=== PATIENT | female | born 1975 | race Caucasian/White ===

== ENCOUNTER 2022-08-05 08:00 | Outpatient (RCR) | payer OTHER, SELFPAY | END 2022-10-02 12:19 | disposition home or self-care (01) | PROVIDERS: PCP Family Medicine; Visit Provider Family Medicine | DX: M25.551 Pain in right hip (principal); Z51.89 Encounter for other specified aftercare | CPT/HCPCS: 97110; 97112; 97161 ==

== ENCOUNTER 2023-11-19 13:00 | Outpatient (RCR) | payer OTHER, SELFPAY | END 2024-03-18 23:59 | disposition home or self-care (01) | PROVIDERS: PCP Family Medicine; Visit Provider Family Medicine | DX: N81.2 Incomplete uterovaginal prolapse (principal); Z51.89 Encounter for other specified aftercare | CPT/HCPCS: 97110; 97140; 97162 ==

== ENCOUNTER 2025-03-25 08:08 | Outpatient (CLI) | payer OTHER, SELFPAY ==
--- NOTE | 2025-03-25 08:15 | CRLHL7_ITS ---
For Patients: As a result of the Century Cures Act, medical imaging exams and procedure reports are released immediately into your electronic medical record. You may view this report before your referring provider. If you have questions, please contact your health care provider. Indication: PAIN, INSTABILITY OF LEFT SHOULDER, LABRAL TEAR Comparison: 03/14/2025 Procedure : Informed consent was obtained. The site was marked. Time-out was performed. The skin of the left shoulder was cleansed with ChloraPrep. A sterile drape was placed. 8 cc of 1 percent lidocaine was administered for superficial anesthesia. Subsequently a 22 gauge spinal needle was introduced into the left shoulder joint under intermittent fluoroscopic guidance. Injection of 2 cc nonionic Omnipaque 240 contrast confirmed intra-articular location. Subsequently 11 cc of dilute gadolinium were injected. The needle was removed and hemostasis achieved with direct pressure. A dressing was placed. The patient tolerated the procedure well without immediate complication and was immediately sent to MRI for imaging. Total fluoroscopy time 33 seconds. Impression: Successful fluoroscopically guided left shoulder arthrogram for MRI. Dictated by Stevie Cruz MD @ 03/25/2025 10:12:56 AM (Electronically Signed)
--- NOTE | 2025-03-25 09:15 | MR_ITS ---
[address] [address] Phone:?[phone] Fax:?[phone] Referring Physician Information: Erick Landin M.D. [address] [place] [address] Phone:?[phone] Fax:?[phone] Patient:Idalmis Rao D.O.B:?1975 Sex:?Female Phone:?[phone] [facility] MRN:?[id number] Exam Date:?03/25/2025 EXAM: MR ARTHROGRAM of the LEFT SHOULDER CLINICAL: Left shoulder instability. Evaluate for labral tear. COMPARISONS: X-rays 03/14/2025. TECHNICAL: Multiplanar multisequence MRI of the left shoulder was obtained following the intra-articular administration of contrast. SEDATION: None. CONTRAST: Gadolinium based contrast within the left glenohumeral joint. FINDINGS: Rotator cuff: Supraspinatus/Infraspinatus: No tendinosis, tear or atrophy. Teres minor: No tendinosis, tear or atrophy. Subscapularis: No tendinosis, tear or atrophy. Bursae: Subacromial-subdeltoid: No significant bursal fluid. Subcoracoid: No significant bursal fluid. Coracoacromial arch: Acromion morphology: Type II. No os acromiale. Acromiohumeral space: Within normal limits. Coracohumeral space: Within normal limits. Biceps tendon, long head: There is mild tendinosis/partial interstitial tearing of the intra-articular tendon. No tendon tear or displacement. Glenohumeral joint: There is increased contrast within the glenohumeral joint consistent with successful arthrogram injection. Displaced chondral fragment is present within the axillary recess measuring approximately 6 mm in size on coronal series 6 image 16. Articular cartilage: There is high-grade high-grade chondral loss and deep chondral delamination involving the anterior/anteroinferior glenoid on axial series 3 images 15-16 measuring approximately 6 mm in transverse dimension. Humeral head cartilage appears preserved. Capsule: No evidence of capsular thickening or injury. Labrum: There is tearing of the anterior and anteroinferior labrum as seen on axial series 3 images 15-17. There is attenuation and tearing of the superior and posterior superior labrum as seen on coronal series 6 images 14-16. No perilabral cyst identified. Bones: No suspicious marrow signal alteration, fracture or dislocation. Acromioclavicular joint: No acute injury or significant arthrosis. IMPRESSION: 1. Tearing of the anterior and anteroinferior labrum with adjacent small segment of high-grade chondral loss and deep chondral delamination involving the anterior and anteroinferior glenoid. Small 6 mm displaced chondral fragment within the axillary recess. 2. Attenuation and tearing of the superior and posterior superior labrum. 3. Mild tendinosis/partial interstitial tearing of the intra-articular long head biceps tendon. 4. Normal appearance of the rotator cuff. JCZ Electronically signed on 03/25/2025 11:35:00 AM by Damon Interiano D.O.
--- OUTSIDE RECORDS SUMMARY | 2025-03-26 00:51 | XMS_ITS | Clinical Summary ---
Author Organization [employer] [facility] Address [address] [place] [address] Care Team Providers Care Demand Equipment Repairer Name Role Phone Altagracia Vela MD Primary Care Provider Allergies Active Allergy Reactions Criticality Noted Date Comments Ragweed Runny Nose 06/15/2012 Medications FLUoxetine (PROZAC) 20 mg capsuleIndicati ons:Anxiety Take 1 Capsule (20 mg) by mouth once daily. 90 Capsule 3 10/08/2024 Active Active Problems Problem Noted Date Diagnosed Date Cervical cancer screening 10/15/2024 Overview (10/15/2024): 10/2024 NIL/HPV negative Plan: HPV-based testing due 10/2029 Abnormal uterine bleeding (AUB) 10/17/2023 Colon polyp 10/08/2022 Overview (10/08/2022): Colonoscopy 09/2022 3-TA, repeat in 5 years Menorrhagia with regular cycle 06/18/2019 History of gestational diabetes 06/18/2019 Anxiety 06/18/2019 Tonsil stone 06/18/2019 Low ferritin Resolved Problems Problem Noted Date Diagnosed Date Resolved Date White classification A2 gest ational diabetes mellitus (GDM), insulin controlled 12/18/201605/19 Overview (12/18/2016): 12/2016: history of LGA X 2. OGTT not done. Fasting glucose 89-115, one hour post meals normal. History of shoulder dystocia in prior , currently in second trimester 11/06/2016 05/19/2018 AMA (advanced maternal age) multigravida 35+ 6 05/19/2018 Supervision of high risk pre gnancy in third trimester 07/11/2016 05/19/2018 Overview (02/07/2017): Complications this : - Gestational diabetes, insulin controlled (white class A2) - H/o shoulder dystocia - H/o hemorrhage. OB history: 1st : ectopic 2nd: Tennille (14 year old)-- 8 + lbs. -- born at [facility] at 41 weeks 3rd: Miscarriage at 12 weeks 4th/5th: IVF -- twin , but Felix was only baby that made it --(10 lbs) --home , 41 weeks. Complicated by hemorrhage, improved with pitocin. Complicated by post- hemorrhage. Improved with pitocin Complicated by shoulder dystocia 2nd deg tear with first, 1st deg with 2nd. Fractured vertebrae as a teenager in lumbar spine. Has some chronic back pain from that injury. This is an Unplanned . FOB 48, Mom 40. Has had 2 unmedicated deliveries. Would like to do as much genetic testing as possible, and plans to have medications to assist with labor pain management. /Father of baby: Don GBS: Negative GTT: Not done, did glucose monitoring at home to confirm gestational diabetes. Has been following with Dr. Calderon at and [facility] clinic. Blood type: A Rh + Hemoglobin: 12.9-11.9 HIV negative Hepatitis B negative Treponema negative Rubella Immune Tdap given 12/11/16 Influenza given 07/11/2016 No need for rhogam given Rh+ status Well female exam with routin e gynecological exam 04/21/2013 12/18/2016 Adjustment disorder with anxiety 01/26/2013 04/21/2013 Immunizations Immunization Administration Dates Next Due INFLUENZA, IIV3 PF (AGE >= 6 MO) 08/27/2024 Influenza A (H1N1), Inactivated 08/16/2009 Influenza, IIV3 (Age >=3 years) 07/20/2010 Influenza, IIV4 07/03/2023,,06/18/2019,06/30/2017 ,07/11/2016,08/16/2009 Influenza, IIV4 (=>6mos) MDV 07/05/2020,07/30/20 18,07/19/2015 Tdap 12/11/2016,06/15/2012 Tdap, Unspecified 07/28/2007 Family History Medical History Relation Name Comments Good Health Father Cancer-breast Maternal Aunt diagnosed lat e 50s Cancer Maternal Grandfather leukemi a, old age Other Maternal Grandfather glaucom a Good Health Mother Other Paternal Grandmother macular degeneration Cancer-ovarian No Family History Relation Name Status Comments Father Maternal Aunt Maternal Grandfather Mother Paternal Grandmother Social History Tobacco Use Types Packs/Day Years Used Date Smoking Tobacco: Never Passive Smoke Exposure: Past Smokeless Tobacco: Never Tobacco Cessation:Counseling Given: Yes Alcohol Use Standard Drinks/Week Comments No 0 (1 standard drink = 0.6 oz pur e alcohol) PHQ-2 Answer Date Recorded PHQ-2 TOTAL SCORE 0 07/03/2023 Social Connections Answer Date Recorded Do you often feel lonely or isolated from those around you? 0 10/03/2024 Financial Resource Strain Answer Date R ecorded Difficulty of Paying Living Expenses 3 10/03/2024 Difficulty of Paying Living Expenses Not on file 10/03/2024 Food Insecurity Answer Date Recorded Do you worry your food will run out before you are able to buy more? 1 10/03/2024 Transportation Needs Answer Date Record ed Does lack of transportation keep you from medica l appointments? 1 10/03/2024 Does lack of transportation keep you from work, meetings or getting things that you need? 1 10/03/2024 Housing Stability Answer Date Recorded What is your housing situation today? 1 10/03/2024 Utilities Answer Date Recorded Do you have trouble paying f or utilities (for example, heat, electricity, water, phone)? 1 10/03/2024 Comments No Sex and Gender Information Value Date Recorded Sex Assigned at Not on file Legal Sex Female 5:26 AM ORTHOPAEDIC TECHNOLOGIST Gender Identity Not on file Sexual Orientation Not on file Obstetrics History Para Term AB IAB SAB Ectopic Multiple Livin g Live Births 5 3 3 2 1 1 3 3 Date Outcome GA Total Labor Labor/2nd/3rd Weight Sex Type Anes PTL Silvana A1 A5 Name Clin Term Term Ectopic SAB 017 Term 39w2 d Vag Last Filed Vital Signs Vital Sign Reading Time Taken Comments Blood Pressure 124/82 10/08/2024 9:57 AM ORTHOPAEDIC TECHNOLOGIST man ual Pulse 84 10/08/2024 9:57 AM ORTHOPAEDIC TECHNOLOGIST Temperature 36.3 C (97.4 F) 10/17/2023 2:17 PM ORTHOPAEDIC TECHNOLOGIST Respiratory Rate 16 10/17/2023 2:47 PM ORTHOPAEDIC TECHNOLOGIST Oxygen Saturation 98% 10/08/2024 9:57 AM ORTHOPAEDIC TECHNOLOGIST Inhaled Oxygen Concentration - - Weight 81.4 kg (179 lb 6.4 oz) 10/08/2024 9:57 A M ORTHOPAEDIC TECHNOLOGIST Height 165.1 cm (5' 5) 10/08/2024 9:57 AM ORTHOPAEDIC TECHNOLOGIST Body Mass Index 29.85 10/08/2024 9:57 AM ORTHOPAEDIC TECHNOLOGIST Plan of Treatment Health Maintenance Due Date Last Done Comments Hepatitis B series for 19+ (1 of 3 - 19+ 3-dose series) 1995 Depression screening for age 12+ 07/07/2024 07/07/2023, 07/04/2023, 07/03/2023, Additional history exists Mammogram for age 45-75 10/10/2024 10/10/19 24, 05/22/2022, 07/05/2020, Additional history exists BMI (ht and wt on same day) for age 18+ 10/08/2025 10/08/2024, 07/03/2023, 05/28/2022, Additional history exists Tetanus booster 12/11/2026 12/11/2016, 06/06, 04/15/2011, Additional history exists Colonoscopy through age 75 09/25/202709/25, 09/25/2022, 09/25/2022 Lipids for age 45-75 10/08/2029 10/08/2024, 04/11/2021, 06/18/2019, Additional history exists Pap test for age 21-65 10/08/2029 , 10/08/2024, 06/18/2019, Additional history exists HIV for age 15-65 Completed 07/11/2016 Tdap Completed 12/11/2016, 06/06, 07/28/2007 Hepatitis C screening for age 18-79 Completed 05/08/2022 COVID-19 vaccine series Completed 06/11/20 24, 07/09/2023, 08/17/2021, Additional history exists Influenza Vaccine Completed 08/27/2024, , 07/02/2021, Additional history exists Pneumococcal series for age 6-49 Aged Out No longer eligible based on patient's age to complete this topic Procedures Procedure Name Priority Date/Time Associated Diagnosis Comments LIPID PANEL W REFLEX MEASURED LDL Routine 10/08/2024 10:31 AM ORTHOPAEDIC TECHNOLOGIST Lipid screening HPV HIGH RISK Routine 10/08/2024 10:24 AM ORTHOPAEDIC TECHNOLOGIST Screening for cervical cancer XR MAMMO BILAT SCREENING Routine 10/10/2023 8:45 AM ORTHOPAEDIC TECHNOLOGIST Visit for screening mammogram COLONOSCOPY 09/25/2022 7:37 AM ORTHOPAEDIC TECHNOLOGIST ANTI HCV Routine 05/08/2022 4:34 PM CDT Need for hepatitis C screening test ANTI HIV 1/2 Routine 07/11/2016 5:59 PM CDT Encounter for supervision of other normal , first trimester (HC) from Last 3 Months or Most Recently Relevant to Health Maintenance Results * LIPID PANEL W REFLEX MEASURED LDL (10/08/2024 10:31 AM ORTHOPAEDIC TECHNOLOGIST) Pathologist [facility] CHOLESTEROL, TOTAL 174 <200 mg/dL [facility] HDL CHOLESTEROL 65 > OR = 50 mg/dL [facility] TRIGLYCERIDES 101 <150 mg/dL [facility] LDL-CHOLESTEROL 90 mg/dL (calc) [facility] Comment: Reference range: <100 Desirable range <100 mg/dL for primary prevention; <70 mg/dL for patients with CHD or diabetic patients with > or = 2 CHD risk factors. LDL-C is now calculated using the Arsh calculation, which is a validated novel method providing better accuracy than the Friedewald equation in the estimation of LDL-C. Silas GALE et al. LEN. 2013;310(19): 1934-8552 (http://education.StarChase.Yumber/faq/QNJ618) CHOL/HDLC RATIO 2.7 <5.0 (calc) [facility] NON HDL CHOLESTEROL 109 <130 mg/dL (calc) [facility] Comment: For patients with diabetes plus 1 major ASCVD risk factor, treating to a non-HDL-C goal of <100 mg/dL (LDL-C of <70 mg/dL) is considered a therapeutic option. Blood BLOOD SPECIMEN / Unknown 10/08/2024 10:31 AM ORTHOPAEDIC TECHNOLOGIST 10/08/2024 10:31 AM ORTHOPAEDIC TECHNOLOGIST us Altagracia Vela MD CHEMISTRY Final Resul t Performing Organization Address [facility] Co de Phone Number [employer] [facility] [address] [place] [address], [address] [address] * HPV HIGH RISK (10/08/2024 10:24 AM ORTHOPAEDIC TECHNOLOGIST) TYPE 16 Negative Negative 10/12/2024 2:47 PM ORTHOPAEDIC TECHNOLOGIST [facility] TYPE 18 Negative Negative 10/12/2024 2:47 PM ORTHOPAEDIC TECHNOLOGIST [facility] OTHER HIGH RISK TYPES Negative Negative 10/12/2024 2:47 PM ORTHOPAEDIC TECHNOLOGIST [facility] Other (Cervical) Non-Blood / Unknown 10/08/2024 10:24 AM ORTHOPAEDIC TECHNOLOGIST 10/08/2024 4:33 PM ORTHOPAEDIC TECHNOLOGIST Narrative [facility] - 10/12/2024 2:47 PM ORTHOPAEDIC TECHNOLOGIST HPV types 16, 18, 31, 33, 35, 39, 45, 51, 52, 56, 58, 59, 66 and 68 DNA were undetectable or below the pre-set threshold. Methodology: Scopely Jez 4800 HPV Test us Altagracia Vela MD MICROBIOLOGY Final Resul t [facility] [address] [place] [address], [place] * XR MAMMO BILAT SCREENING (10/10/2023 8:45 AM ORTHOPAEDIC TECHNOLOGIST) Anatomical Region Laterality Modality BREASTS, Breast Left, Breast Right Bilateral Mammography Impressions 10/10/2023 3:03 PM ORTHOPAEDIC TECHNOLOGIST There is no radiographic evidence for malignancy. Recommend annual mammograms. MAMMOGRAM ASSESSMENT: ACR 1 Negative PATIENTS: You will also receive a letter with your examination results in an easy to read format. If you have questions about your results, please contact your referring provider. Narrative 10/10/2023 3:03 PM ORTHOPAEDIC TECHNOLOGIST For Patients: As a result of the Century Cures Act, medical imaging exams and procedure reports are released immediately into your electronic medical record. You may view this report before your referring provider. If you have questions, please contact your health care provider. XR MAMMO BILAT SCREENING [[id number]] CLINICAL HISTORY: This is an asymptomatic 48 y.o. patient. INDICATION FOR EXAM: Mammogram Screening. TECHNIQUE: CC & MLO views were obtained. This study was evaluated with the assistance of Computer-Aided Detection. COMPARISON FILM: Yes 05/22/22 [facility] 07/05/20 [employer] FINDINGS: The breasts have scattered areas of fibroglandular density. There are no dominant masses, suspicious micro calcifications or areas of architectural distortion. us Altagracia Vela MD MAMMO Final Resul t * COLONOSCOPY (09/25/2022 7:37 AM ORTHOPAEDIC TECHNOLOGIST) 09/25/2022 7:37 AM ORTHOPAEDIC TECHNOLOGIST Narrative Transcriptions Silas Alfaro MD - 09/25/2022 8:50 AM CST Patient Name: Cate Rao Procedure Date: 09/25/2022 Gender: Female Date of : 1975 Admit Type: Outpatient Procedure: Colonoscopy Proceduralist: Silas Alfaro MD , Ying Story RN (Nurse), Esperanza Cash (Nurse) Indications/Pre-Op Diagnosis: Screening for colorectal malignant neoplasm, This is the patient's first colonoscopy Medications: Fentanyl 100 micrograms IV, Midazolam 3 mgIV Procedure Description: The patient had risks, benefits and alternatives explained to andgave informed consent. The patient had a stable cardiopulmonary status and judged an adequate candidate for conscious sedation. The endoscope PCF-H190L [id number] was passed through the anus andadvanced to the cecum, identified by appendiceal orifice and ileocecal valve.The colonoscopy was performed without difficulty. The patient toleratedthe procedure well. The quality of the bowel preparation was good. The ileocecal valve, appendiceal orifice, and rectum were photographed. Complications: No immediate complications. Estimated Blood Loss & Specimen: Estimated blood loss: none. Specimen collected - Yes and sent to Laboratory Findings: The perianal and digital rectal examinations were normal. A 3 mm polyp was found in the sigmoid colon. The polyp was sessile.The polyp was removed with a cold biopsy forceps. Resection and retrieval were complete. Four sessile and semi-pedunculated polyps were found in the rectum.The polyps were 3 to 4 mm in size. These polyps were removed with a cold snare. Resection and retrieval were complete. The exam was otherwise without abnormality on direct and retroflexion views. Impressions/Post-Op Diagnosis: - One 3 mm polyp in the sigmoid colon, removed with a cold biopsy forceps. Resected and retrieved. - Four 3 to 4 mm polyps in the rectum, removed with a cold snare. Resected and retrieved. - The examination was otherwise normal on direct and retroflexionviews. Recommendation: - Patient has a contact number available for emergencies. The signsand symptoms of potential delayed complications were discussed with the patient. Return to normal activities tomorrow. Written discharge instructions were provided to the patient. - Resume previous diet. - Continue present medications. - Await pathology results. - Repeat colonoscopy is recommended for surveillance. The colonoscopy date will be determined after pathology results from today's exambecome available for review. Moderate Sedation: A time out was performed before the procedure. Moderate (conscious) sedation was administered by the endoscopy nurse and supervised bythe endoscopist. The following parameters were monitored: oxygensaturation, heart rate, blood pressure, EKG, CO2, respiratory rate, adequacy of pulmonary ventilation and reponse to care. Please refer to the patient's medical record flowsheets and nursing notes for moderate sedation details. Total physician intraservice time was 19 minutes. Silas Alfaro MD 09/25/2022 8:50:30 AM This report has been signed electronically. Note Initiated On: 09/25/2022 7:37 AM Procedure Code(s): --- Professional --- 93939, Colonoscopy, flexible; with removalof tumor(s), polyp(s), or other lesion(s) bysnare technique 75532, 59, Colonoscopy, flexible; withbiopsy, single or multiple Diagnosis Code(s): --- Professional --- Z12.11, Encounter for screening formalignant neoplasm of colon D12.5, Benign neoplasm of sigmoid colon D12.8, Benign neoplasm of rectum CPT copyright 2020 [employer]. All rights reserved. The codes documented in this report are preliminary and upon mixing tank operator reviewmay be revised to meet current compliance requirements. Scope In: 8:29:02 AM Scope Withdrawal Time 0 hours 12 minutes 56 seconds Scope Out: 8:45:18 AM us Silas Alfaro MD PROCEDURE ORD Final Res ult * ANTI HCV (05/08/2022 4:34 PM CDT) HEPATITIS C ANTIBODY Non-React cynthia Non-React cynthia 05/10/2022 3:10 PM CDT [facility] Comment:Antibodies to HCV no t detected; does not exclude the possibility of exposure to HCV. Blood BLOOD SPECIMEN / Unknown Venipuncture / Unknown 05/08/2022 4:34 PM CDT 05/08/2022 4:35 PM CDT us Altagracia Vela MD SEND OUTS Final Resul t [facility] [address] [place] [address], * ANTI HIV 1/2 (07/11/2016 5:59 PM CDT) HIV-1/HIV-2 ANTIBODY Non-Reacti ve Non-Reacti ve 07/12/2016 3:24 PM CDT [facility] Blood BLOOD SPECIMEN / Unknown Venipuncture / Unknown 07/11/2016 5:59 PM CDT 07/11/2016 5:59 PM CDT Narrative [facility] - 07/12/2016 3:24 PM CDT HIV-1 p24 and HIV-1/HIV-2 Ab not detected us Eliana España NP SEND OUTS F inal Result Performing Organization Address City/[facility]/ZIP Co de Phone Number [facility] [address] [place] [address], from Last 3 Months or Most Recently Relevant to Health Maintenance Insurance [employer] [place] [id number] Advance Directives * Full Code (Latest Code Status on File) Date Activated Date Inactivated Comments 10/17/2023 11:33 AM 10/17/2023 5:03 PM Question Answer Comments Code Status Discussion: Unable to Assess Preferences, Provider to review later Care Teams Demand Equipment Repairer Relationship Specialty Start Date End Date Altagracia Veal MD [address] [place] [address] PCP - General Family Practice 09/08/17
== END 2025-03-25 08:09 | disposition home or self-care (01) ==
LOC: RAD 08:09
PROVIDERS: PCP Family Medicine; Visit Provider Orthopaedic Surgery
DX: M25.312 Other instability, left shoulder (principal); M25.512 Pain in left shoulder; S43.492A Other sprain of left shoulder joint, initial encounter; S46.812A Strain of other muscles, fascia and tendons at shoulder and upper arm level, left arm, initial encounter
CPT/HCPCS: 23350; 73222; 77002; A9575

== ENCOUNTER 2025-04-21 06:01 | Day surgery (SDC) | payer OTHER, SELFPAY ==
[2025-04-21] VITALS (16 sets, daily range): BP systolic 105–141; BP diastolic 70–97; PULSE 61–79; RESP 12–16; TEMP 36.1–36.5; O2SAT 88–99; BMI 31.6
[2025-04-21 06:19] LABS: Ur HCG Qualitative* Negative (Negative)
[2025-04-21] MEDS: CELECOXIB 200 MG CAPSULE PO (06:31)
[2025-04-21] MEDS: ACETAMINOPHEN 500 MG TABLET 1000 MG PO (06:32)
[2025-04-21] MEDS: OXYCODONE (CR) 10 MG TAB.ER.12H PO (06:32)
[2025-04-21] MEDS: SODIUM CHLORIDE 0.9 % (FLUSH) 10 ML SYRINGE IVF (06:45)
[2025-04-21] MEDS: LACTATED RINGERS 1000 ML 1,000 ML 100 ML IV ×2 (06:46→09:06)
--- NOTE | 2025-04-21 07:05 | SUR.PREOP ---
TIME?OUT:?06 PT/RN/MDA?VERIFICATION?OF?SURGICAL?SITE,?PROCEDURE,?AND?CONSENT OBTAINED?PRIOR?TO?INVASIVE?PROCEDURE.
[2025-04-21] MEDS: MIDAZOLAM HCL 1 MG/ML inj IVP (07:09)
--- NOTE | 2025-04-21 07:19 | P.NB_ITS ---
Nerve Block Nerve Block Time Seen by Provider: 07:10 Date Seen: 04/21/25 Type of block requested by surgeon for post-operative analgesia: supraclavicular Side: left Time out performed: Yes Verification of patient name: Yes Verification of date of : Yes Site marking: site marked Name of person performing procedure: [place] Continuous monitoring Was continuous monitoring of O2 sat, B/P, playground monitor, recorded every 15 minutes?: Yes Procedure Checklist: sterile prep, needles and gloves Ultrasound guided. Images saved: Yes Medications given in 5ml increments after negative aspiration: Ropivicaine %: 0.5 mL: 20 Needle gauge: 22 Precedex (mcg): 25 Patient tolerated procedure well: Yes Block Charges Block Charge (with Pro Fee): Brachial Plexus Use of Ultrasound Machine for Block: Yes- US Guidance/pain block
--- NOTE | 2025-04-21 07:20 | P.ANES_ITS ---
Anesthesia Charges Start Date/Time Anesthesia Start Date: 04/21/25 Anesthesia Start Time: 07:21 Stop Date/Time Anesthesia Stop Date: 04/21/25 Anesthesia Stop Time: 09:27 Coding CPT Codes CPT Codes: ANESTH SURGERY OF SHOULDER - 92677 ([id number]) P2 - PATIENT W/MILD SYST DISEASE, QK - GEAR SHAPER 2-4 CNCRNT ANES PROC, QX - CASING SPLITTER SVC W/ MD MED DIRECTION
--- NOTE | 2025-04-21 07:20 | W.ANESCHARGE ---
Anesthesia Charges Start Date/Time Anesthesia Start Date: 04/21/25 Anesthesia Start Time: 07:21 Stop Date/Time Anesthesia Stop Date: 04/21/25 Anesthesia Stop Time: 09:27 Coding CPT Codes CPT Codes: ANESTH SURGERY OF SHOULDER - 71579 ([id number]) P2 - PATIENT W/MILD SYST DISEASE, QK - TIRE RECAPPER 2-4 CNCRNT ANES PROC, QX - CANCER PROGRAM DIRECTOR SVC W/ MD MED DIRECTION
[2025-04-21] MEDS: EPINEPHrine 1 MG in SODIUM CHLORIDE IRRIG SOLUTION 3,000 ML 9003 MG IRRIGATION ×2 (08:00→08:42)
--- NOTE | 2025-04-21 09:08 | PM.ORPRC ---
Procedure Note Date of procedure: 04/21/25 Procedure: PREOPERATIVE DIAGNOSIS: Left shoulder anterior instability POSTOPERATIVE DIAGNOSIS: Left shoulder anterior instability NAME OF OPERATION: Left shoulder examination under anesthesia, left shoulder arthroscopic Bankart repair SURGEON: Erick Landin MD STREET RAILWAY LINE INSTALLER: Mckenzie Melissa PA-C ANESTHESIA: General ESTIMATED BLOOD LOSS: 5 mL COMPLICATIONS: None SPECIMENS: None DRAINS: None PREOPERATIVE ANTIBIOTICS: Ancef 2 gram INDICATIONS: The patient is a 50-year-old with a history of left shoulder instability. 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 Despite appropriate nonoperative management, including activity modification, antiinflammatories, [id number] pain medication and physical therapy they continue to have pain and disability. Operative intervention was offered. The risks, benefits and expected outcomes were discussed in detail. These included but were not limited to: Infection, bleeding, injury to blood vessel or nerve, venous thromboembolism. All questions were answered to their satisfaction. PROCEDURE: General anesthesia was administered. The patient was placed in the high beach chair position. The left shoulder was prepped and draped in the usual sterile fashion. Examination under anesthesia was performed findings as follows: There is full passive range of motion There is grade 1-2 anterior instability There is no posterior or inferior instability The glenohumeral joint was infiltrated with 20 mL of normal saline with epinephrine. The posterior portal was established. The arthroscope was introduced. The anterior portal was established. Diagnostic arthroscopy was performed with findings as follows: The biceps and biceps anchor are intact. The superior, posterior and posterior superior labrum are intact. The anterior and anterior inferior labrum is torn off of the anterior glenoid rim. Articular surfaces on the humeral head is normal, there is a tiny grade 3/4 lesion over the anterior aspect of the glenoid. There was a loose body that was debrided with the shaver. There is no obvious bony Bankart or Hill-Sachs lesion. The rotator cuff is intact. An accessory anterior inferior portal was placed just superior to the subscapularis. The labrum was elevated off of the glenoid rim with the elevator. The shaver was used to debride the bone of the anterior rim of the glenoid and the small unstable articular cartilage flap over the anterior aspect of the glenoid. A knotless FiberTak was placed at the 630 or 7 o'clock position. The suture Lasso was used to shuttle the repair suture through the labrum, just superior to the inferior apex of the tear. The suture was shuttled through the anchor and was tensioned. We repeated this sequence of steps just proximal to this for a 2nd and 3rd FiberTak anchor. This provided anatomic repair of the anterior and anterior-inferior labrum. It is stable to probing. Arthroscopic instruments were removed. The portal sites were closed with a 3-0 nylon. A dry dressing polar Care and sling were applied. Sponge and needle counts were correct x2. The patient tolerated the procedure well. There were no apparent complications. They were awakened and extubated in the operating room, carefully transferred to the hospital bed and taken to the postanesthesia care unit in satisfactory condition. PLAN: The patient will be discharged to home. They will use the sling manager maritime. However, they may come out of the sling 3 times per day and p.r.n. to work on active range of motion of the elbow, wrist and fingers. Limited active range of motion of the shoulder will be allowed for the next 4 weeks. They will follow up in the office next week for wound check and three views of the shoulder prior to being seen in preparation for beginning therapy.
--- NOTE | 2025-04-21 09:23 | P.ANES_ITS ---
Anesthesia Charges Start Date/Time Anesthesia Start Date: 04/21/25 Anesthesia Start Time: 07:21 Stop Date/Time Anesthesia Stop Date: 04/21/25 Anesthesia Stop Time: 09:27 Coding CPT Codes CPT Codes: ANESTH SURGERY OF SHOULDER - 78394 ([id number]) P2 - PATIENT W/MILD SYST DISEASE, QK - SLUBBER MACHINE OPERATOR 2-4 CNCRNT ANES PROC, QX - NUCLEAR POWERPLANT SUPERVISOR SVC W/ MD MED DIRECTION
--- NOTE | 2025-04-21 09:23 | W.ANESCHARGE ---
Anesthesia Charges Start Date/Time Anesthesia Start Date: 04/21/25 Anesthesia Start Time: 07:21 Stop Date/Time Anesthesia Stop Date: 04/21/25 Anesthesia Stop Time: 09:27 Coding CPT Codes CPT Codes: ANESTH SURGERY OF SHOULDER - 63621 ([id number]) P2 - PATIENT W/MILD SYST DISEASE, QK - LOOP MACHINE OPERATOR 2-4 CNCRNT ANES PROC, QX - MANAGER GLOBAL COMMUNICATIONS SVC W/ MD MED DIRECTION
== END 2025-04-21 11:19 | disposition home or self-care (01) ==
PROVIDERS: Anesthesiology; PCP Family Medicine; Visit Provider Orthopaedic Surgery
PROC: (CPT 29806; principal; 2025-04-21 07:15)
DX: S43.432A Superior glenoid labrum lesion of left shoulder, initial encounter (principal); M25.312 Other instability, left shoulder; G89.18 Other acute postprocedural pain
CPT/HCPCS: 29806; 01630; 64415; 76942; 81025; A9270; C1713; J0169; J0330; J0690; J1100; J2250; J2371; J2405; J2704; J2795; J3010; J3490; J7120; L3670